=== PATIENT | female | born 1950 ===

== ENCOUNTER 2022-09-01 07:30 | Day surgery (SDC) | payer OTHER | END 2022-09-01 14:10 | disposition home or self-care (01) | LOC: AMB-ENDOS 07:30 | PROVIDERS: ATTEND Colon & Rectal Surgery | DX: K62.5 Hemorrhage of anus and rectum (principal); K64.8 Other hemorrhoids; R19.4 Change in bowel habit; Z20.822 Contact with and (suspected) exposure to COVID-19 ==